=== PATIENT | female | born 1985 | race Caucasian/White ===

== ENCOUNTER 2023-08-01 07:29 | Outpatient (REF) | payer OTHER, SELFPAY ==
[2023-08-01 08:04] LABS: MANUAL DIFF FLAG NO
[2023-08-01 08:50] LABS: Basophils Percent Auto 0.4 % (0-2); Eosinophils Absolute Auto 0.1 X10*3/uL (0.0-0.4); Hematocrit 40.1 % (37.0-47.0); Hemoglobin 12.6 g/dl (12.0-16.0); Imm Gran Abs Auto 0.02 X10*3/uL (0.00-0.03); Imm Gran Pct Auto 0.3 % (0.0-0.4); Lymphocytes Absolute Auto 2.3 X10*3/uL (1.2-4.9); Lymphocytes Percent Auto 33.8 % (20-40); Mean Corpuscular HGB Conc 31.4 g/dl (31.0-35.0); Mean Corpuscular Volume 89.1 fL (80.0-98.0); Mean Platelet Volume 10.5 fL (9.4-12.3); Monocytes Absolute Auto 0.5 X10*3/uL (0.1-1.2); Monocytes Percent Auto 7.9 % (2-11); Neutrophils Absolute Auto 3.8 x10*3/uL (2.0-8.3); Neutrophils Percent Auto 55.6 % (45-73); Platelet Count 348 X10*3/uL (160-400); White Blood Count 6.9 X10*3/uL (4.8-10.8)
[2023-08-01 09:28] LABS: Alanine Aminotransferase 17 U/L (0-31); Albumin Level 4.2 g/dL (3.5-5.0); Alkaline Phosphatase 64 U/L (39-117); Anion Gap 10 (12-20); Aspartate Amino Transferase 18 U/L (5-31); Bilirubin Total 0.5 mg/dL (0.0-1.0); Blood Urea Nitrogen 12 mg/dL (9-16); Calcium 9.2 mg/dL (8.4-10.2); Carbon Dioxide 25 mmol/L (22-29); Chloride 110 mmol/L (96-108); Cholesterol 183 mg/dL (<200); Estimated Glomerular Filt Rate > 60; Glucose Random 89 mg/dL (60-115); HDL Cholesterol 52 mg/dL (>40); LDL Cholesterol Calculated 115 mg/dL (<100); Sodium 141 mmol/L (135-145); Total Protein 7.1 g/dL (6.5-8.0); Triglycerides 82 mg/dL (<150)
== END 2023-08-01 07:30 | disposition home or self-care (01) ==
LOC: HO.LAB 07:29
PROVIDERS: PCP Internal Medicine; Visit Provider Internal Medicine
DX: Z00.00 Encounter for general adult medical examination without abnormal findings (principal); M51.16 Intervertebral disc disorders with radiculopathy, lumbar region; R10.2 Pelvic and perineal pain; Z90.710 Acquired absence of both cervix and uterus; Z13.31 Encounter for screening for depression
CPT/HCPCS: 36415; 80053; 80061; 85025

== ENCOUNTER 2023-10-07 16:05 | Outpatient (REF) | payer OTHER, SELFPAY ==
--- NOTE | ~2023-10-07 | XR_ITS ---
EXAMINATION: XR HIP, LEFT CLINICAL INFORMATION: Osteoarthritis COMPARISON: None available. TECHNIQUE: Two views of the left hip. FINDINGS: No fracture. Alignment is anatomic. Hip joint space is maintained. Soft tissues are unremarkable. XR/XR hip LT w PEL1V IMPRESSION: Normal left hip.
== END 2023-10-07 16:06 | disposition home or self-care (01) ==
LOC: HO.XRAY 16:05
PROVIDERS: PCP Internal Medicine; Visit Provider Internal Medicine
DX: M16.12 Unilateral primary osteoarthritis, left hip (principal)
CPT/HCPCS: 73502

== ENCOUNTER 2023-10-17 15:33 | Outpatient (AMB) | payer OTHER, SELFPAY ==
--- NOTE | 2023-10-17 15:39 | MHC.OFFVIS ---
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 It's intermittent in nature lasting most of the day. it is not associated with c any onstipation, no dysuria, or frequency , no incontinence, no n/v, no feverishness PFSH Surgical History Hx of tubal ligation Hx of appendectomy Hx of hysterectomy Social History Household Members: Spouse and Children Housing: House Alcohol intake: current Alcohol intake frequency: holidays/special occasions only Patient Tobacco Use Status: Never used Tobacco Current occupational status: employed Current occupation: [employer] Sexual orientation: Straight/Heterosexual Gender identity: Female Female Reproductive History Menstrual control method: permanent sterilization Review of Systems Const All systems reviewed & are unremarkable except as noted in HPI and below Card Reports as per HPI and Reports no additional complaints Resp Reports as per HPI and Reports no additional complaints GI Reports as per HPI and Reports no additional complaints Reports as per HPI Physical Exam Vital Signs: BMI result Body Mass Index 32.9 Const General: cooperative, healthy appearing and comfortable General: Yes bladder normal to palpation External Female Exam: No lesion Speculum Exam - Vagina: normal appearance of the vagina, normal vaginal discharge and not erythematous Speculum Exam - Cervix: Cervix absent Bimanual exam- vagina & uterus: bladder normal to palpation and uterus absent Bimanual Exam- Adnexa, other: Other (No masses detected) Assessment & Plan Assessment & Plan (1) Pelvic pain: Comment: History of endometriosis status post hysterectomy Code(s): R10.2 - Pelvic and perineal pain Plan: Urine dip done in the office was negative. Pelvic ultrasound ordered. Discussed with the patient the differential diagnosis of pelvic pain including but not limited to adnexal mass, adhesions, endometriosis, GI the (Irritable bowel syndrome, diverticulitis, others), musculoskeletal, myofascial pain abdominal wall , psychological and others causes. Will check results and treat accordingly. All questions answered, the patient verbalized understanding. Instructed the patient to schedule follow-up appointment in 2 weeks Orders: Orders US pelvic and transvaginal Today R10.2 - Pelvic and perineal pain Coding Level of Care Code New Pt Level 3 (99167) Diagnoses Pelvic pain R10.2
[2023-10-17 15:41] VITALS: BP 110/74; BMI 32.9
== END 2023-10-17 15:59 | disposition home or self-care (01) ==
LOC: HO.HWS 15:33
PROVIDERS: PCP Internal Medicine; Visit Provider Obstetrics & Gynecology
DX: R10.2 Pelvic and perineal pain (principal)
CPT/HCPCS: 99203

== ENCOUNTER → 2023-10-17 15:33 | Outpatient (BNVA) | payer OTHER, SELFPAY | PROVIDERS: PCP Internal Medicine; Visit Provider Obstetrics & Gynecology | DX: R10.2 Pelvic and perineal pain (principal) | CPT/HCPCS: 99202 ==

== ENCOUNTER → 2023-12-05 13:17 | Outpatient (BNVA) | payer OTHER, SELFPAY | PROVIDERS: PCP Internal Medicine; Visit Provider Physician Assistant Medical | DX: S49.92XA Unspecified injury of left shoulder and upper arm, initial encounter (principal); X58.XXXA Exposure to other specified factors, initial encounter | CPT/HCPCS: 99203 ==

== ENCOUNTER 2023-12-19 08:57 | Outpatient (REF) | payer OTHER, SELFPAY ==
--- NOTE | ~2023-12-19 | MR_ITS ---
EXAMINATION: MR SHOULDER WITHOUT CONTRAST, LEFT CLINICAL INFORMATION: Pain COMPARISON: None available. TECHNIQUE: MRI of the shoulder without contrast was performed on a high-field scanner. FINDINGS: ROTATOR CUFF: Supraspinatus: Minimal heterogeneity of the distal supraspinatus tendon compatible tendinosis. No tear identified. Muscle normal. The remaining rotator cuff muscles and tendons are normal. BICEPS: Normal. CORACOACROMIAL ARCH: The undersurface of the acromion is curved with no subacromial spur. The acromioclavicular joint is normal. LABRUM/CAPSULE: Normal. GLENOHUMERAL JOINT/MARROW: Normal. MR/MR shoulder LT wo con IMPRESSION: Mild supraspinatus tendinosis.
== END 2023-12-19 08:58 | disposition home or self-care (01) ==
LOC: HO.MRI 08:57
PROVIDERS: PCP Internal Medicine; Visit Provider Internal Medicine
DX: M25.512 Pain in left shoulder (principal)
CPT/HCPCS: 73221

== ENCOUNTER 2023-12-25 10:54 | Outpatient (RCR) | payer OTHER, SELFPAY | END 2024-02-17 13:29 | disposition home or self-care (01) | LOC: HO.PT 10:54 | PROVIDERS: PCP Internal Medicine; Visit Provider Internal Medicine | DX: M70.60 Trochanteric bursitis, unspecified hip (principal) ==

== ENCOUNTER → 2023-12-30 14:23 | Outpatient (BNVA) | payer OTHER, SELFPAY | PROVIDERS: PCP Internal Medicine; Visit Provider Physician Assistant Medical | DX: M75.102 Unspecified rotator cuff tear or rupture of left shoulder, not specified as traumatic (principal) | CPT/HCPCS: 99213 ==

== ENCOUNTER → 2024-01-20 14:05 | Outpatient (BNVA) | payer OTHER, SELFPAY | PROVIDERS: PCP Internal Medicine; Visit Provider Physician Assistant Medical | DX: M75.102 Unspecified rotator cuff tear or rupture of left shoulder, not specified as traumatic (principal); S49.92XD Unspecified injury of left shoulder and upper arm, subsequent encounter; X58.XXXD Exposure to other specified factors, subsequent encounter | CPT/HCPCS: 99213 ==

== ENCOUNTER 2024-01-22 08:58 | Outpatient (AMB) | payer OTHER, SELFPAY ==
--- NOTE | 2024-01-22 09:09 | MHC.OFFVIS ---
Vital Signs 01/22/24 09:14 Height 5 ft 3 in Weight 185 lb 3.013 oz BMI 32.8 Intake Visit Reasons: Pelvic pain Allergies No Known Allergies Allergy (Verified 10/17/23 15:43) HPI Comments Details: The patient is presenting for follow-up regarding her pelvic pain that started 3 ago after hysterectomy for endometriosis. The patient was seen in 10/23 following workup was done urine dip in the office was negative and a pelvic ultrasound was ordered which was done at [facility], the patient brought the report, showing absent uterus normal right ovary and nonvisualization of the Last ovary with no evidence of pelvic masses PFSH Surgical History Hx of tubal ligation Hx of appendectomy Hx of hysterectomy Social History Household Members: Spouse and Children Housing: House Alcohol intake: current Alcohol intake frequency: holidays/special occasions only Patient Tobacco Use Status: Never used Tobacco Current occupational status: employed Current occupation: [employer] Sexual orientation: Straight/Heterosexual Gender identity: Female Review of Systems Const All systems reviewed & are unremarkable except as noted in HPI and below Card Reports as per HPI and Reports no additional complaints Resp Reports as per HPI and Reports no additional complaints GI Reports as per HPI and Reports no additional complaints Reports as per HPI Physical Exam Vital Signs: BMI result Body Mass Index 32.8 Const General: cooperative, healthy appearing and comfortable General: Yes bladder normal to palpation External Female Exam: No lesion Speculum Exam - Vagina: normal appearance of the vagina, normal vaginal discharge and not erythematous Speculum Exam - Cervix: Cervix absent Bimanual exam- vagina & uterus: bladder normal to palpation and uterus absent Bimanual Exam- Adnexa, other: Other (No masses detected) Results AMB Urinalysis Dipstick UR Leukocytes Negative Last Edit by Sylwia Rendon CMA on 01/22/24 09:18 UR Nitrite Negative Last Edit by Sylwia Rendon CMA on 01/22/24 09:18 UR Urobilinogen Normal Last Edit by Sylwia Rendon CMA on 01/22/24 09:18 UR Protein Negative Last Edit by Sylwia Rendon CMA on 01/22/24 09:18 UR Ph 6.0 Last Edit by Sylwia Rendon CMA on 01/22/24 09:18 UR Blood Last Edit by Sylwia Rendon CMA on 01/22/24 09:18 UR Specific [place] 1.020 Last Edit by Sylwia Rendon CMA on 01/22/24 09:18 UR Ketone Negative Last Edit by Sylwia Rendon CMA on 01/22/24 09:18 UR Bilirubin Negative Last Edit by Sylwia Rendon CMA on 01/22/24 09:18 UR Glucose Negative Last Edit by Sylwia Rendon CMA on 01/22/24 09:18 Results Reviewed Results Reviewed: Laboratory Last Values Urine pH (Clinic) 6.0 01/22/24 09:17 Specific [place] (Clinic) 1.020 01/22/24 09:17 Ur Protein (Clinic) Negative 01/22/24 09:17 Ur Ketones (Clinic) Negative 01/22/24 09:17 Urine Nitrite Negative 01/22/24 09:17 Urine Bilirubin (Clinic) Negative 01/22/24 09:17 Urobilinogen (Clinic) Normal 01/22/24 09:17 Leukocyte Esterase (Clinic) Negative 01/22/24 09:17 Urine Glucose (Clinic) Negative 01/22/24 09:17 Assessment & Plan Assessment & Plan (1) Pelvic pain: Comment: History of endometriosis status post hysterectomy Code(s): R10.2 - Pelvic and perineal pain Category: Medical Plan: Discussed with the patient the results the ultrasound and the pelvic pain secondary to endometriosis in addition to the options of treatment including but not limited to: control pills, progestins, GnRH analogues agonist/antagonist, danazol, aromatase inhibitors and neuropathic pain treatment in addition to surgical treatment options including surgical resection of endometriosis or nerve transection and bilateral oophorectomy with all its associated risks in a younger patient at her age group. Recommended referral to endometriosis clinic/specialist at [facility], the patient verbalized understanding and agreed with the plan. Orders: Orders AMB Urinalysis Dipstick Today R10.2 - Pelvic and perineal pain Coding Level of Care Code Est Pt Level 3 (70056) Diagnoses Pelvic pain R10.2
[2024-01-22 09:14] VITALS: BMI 32.8
== END 2024-01-22 11:47 | disposition home or self-care (01) ==
PROVIDERS: PCP Internal Medicine; Visit Provider Obstetrics & Gynecology
DX: R10.2 Pelvic and perineal pain (principal)
CPT/HCPCS: 99213

== ENCOUNTER → 2024-01-22 08:58 | Outpatient (BNVA) | payer OTHER, SELFPAY | PROVIDERS: PCP Internal Medicine; Visit Provider Obstetrics & Gynecology | DX: R10.2 Pelvic and perineal pain (principal); Z90.710 Acquired absence of both cervix and uterus | CPT/HCPCS: 81002 ==

== ENCOUNTER 2024-01-28 14:00 | Outpatient (RCR) | payer OTHER, SELFPAY ==
--- NOTE | 2024-01-14 16:49 | MHC.PT.EP ---
[facility] [place] Office [place] Office [place] Office [address] Roxie Swift [address] [phone] F: [phone] F: [phone] F: [phone] F: [phone] Physical Therapy Plan of Care Date of Evaluation: 01/14/24 Date of Surgery: Diagnosis: L shoulder tendonitis Mild supraspinatus tendonitis via MRI Assessment: Patient is a pleasant Khmer speaking 38 y.o. who is referred to PT by Dr. Eugenia Spears MD with Dx of LEFT shoulder tendonitis, supraspinatus verified on MRI. Patient impairments include poor posture, pain, tenderness, limited ROM, weakness in L shoulder. Patient current functional limitations are lift arm overhead, lift/carry items at work, put on undershirt. Patient will benefit from skilled PT to address aforementioned impairments and functional limitations to meet established goals. Frequency and Duration: The patient will be seen 2x/week for 4 weeks Short Term Goals: 2 weeks Patient demonstrates consistency and independence with HEP to self manage symptoms. Senior Care Goals: 4 weeks Patient demonstrates increased L shoulder flexion 175 degrees to reach overhead for work tasks. Patient demonstrates increased L shoulder flexion strength 5/5 to be able to lift 30# box floor to waist for work tasks. Treatment Plan: Modalities to reduce pain, spasms and effusion. Manual therapy to restore motion and function. Therapeutic exercise to improve strength and flexibility. Neuromuscular re-education for posture and balance. Therapeutic activities to return to functional activities of daily living. Electronically signed by: Alisa Chapman, PT, DPT Please sign and return to therapist. Thank you for your referral.
--- NOTE | 2024-03-26 09:48 | MHC.PT.DC ---
[facility] [place] Office [place] Office [place] Office [address] Roxie Swift [address] [phone] F: [phone] F: [phone] F: [phone] F: [phone] Physical Therapy Discharge Report Diagnosis: L shoulder tendonitis Mild supraspinatus tendonitis via MRI Date of Surgery: Date of Evaluation: 01/14/24 Date of Discharge: 03/26/24 Treatments to Date: 4 Cancellations to Date: 0 No Shows to Date: 4 Discharge Status: Independent with HEP Visit Non-compliance Discharge Summary: Rita is discharged from PT because she did not show to her last 4 PT visits. 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 Rita kept good form throughout and had no onset discomfort through. We also introduced some banded rows and extensions with some VC/TC needed for form w/good understanding from patient. She is discharged from PT at this time for non-compliance with attendance. Electronically signed by: Alisa Chapman, PT, DPT Please sign and return to therapist. Thank you for your referral.
== END 2024-03-26 09:48 | disposition home or self-care (01) ==
LOC: HO.PT 14:00
PROVIDERS: PCP Internal Medicine; Visit Provider Physician Assistant Medical
DX: M77.8 Other enthesopathies, not elsewhere classified (principal)
CPT/HCPCS: 97035; 97110; 97140; 97161

== ENCOUNTER 2024-08-21 14:47 | Outpatient (AMB) | payer OTHER, SELFPAY ==
[2024-08-21 15:08] VITALS: BP 116/68; BMI 33.9
--- NOTE | 2024-08-21 15:08 | MHC.OFFVIS ---
Vital Signs 08/21/24 15:08 Height 5 ft 3 in Weight 191 lb 8 oz BMI 33.9 BP 116/68 Blood Pressure Location Lt brachial Position Sitting Intake Visit Reasons: vaginal discomfort Allergies No Known Allergies Allergy (Verified 08/21/24 15:10) Is last menstrual period known: No HPI Comments Details: Patient is here today with concerns for feeling inflammation in her lower abdomen. History of endometriosis diagnosed 10yrs. ago, hysterectomy 3yrs. ago. She reports pain on the left ovary all the time and low back pain for a year. Referral for Endometriosis clinic in [place] since December, on the wait list. She denies any urinary symptoms, vaginal odors, has significant constipation, though better over the last few weeks. [facility] Surgical History Hx of tubal ligation Hx of appendectomy Hx of hysterectomy Social History Household Members: Spouse and Children Housing: House Alcohol intake: current Alcohol intake frequency: holidays/special occasions only Patient Tobacco Use Status: Never used Tobacco Current occupational status: employed Current occupation: [employer] Sexual orientation: Straight/Heterosexual Gender identity: Female Review of Systems Const All systems reviewed & are unremarkable except as noted in HPI and below Physical Exam Vital Signs: Last Vital Signs BP 116/68 08/21/24 15:08 BMI result Body Mass Index 33.9 Const General: cooperative, healthy appearing and no acute distress Orientation/consciousness: patient oriented x3 GI Inspection: Yes normal to inspection Palpation (GI): Soft to palpation and Other GI palpation findings present (Nontender) Rectal Exam - Female: visual inspection normal Other: Bloating noted General: Yes bladder normal to palpation External Female Exam: normal appearance of the urethra Speculum Exam - Vagina: normal appearance of the vagina, normal palpation and normal vaginal discharge Speculum Exam - Cervix: Cervix absent (vag cuff no lesions or nodules) Bimanual exam- vagina & uterus: normal bimanual exam, normal palpation, bladder normal to palpation and uterus absent Bimanual Exam- Adnexa, other: normal adnexae Neuro General: patient oriented x3 Assessment & Plan Assessment & Plan (1) Abdominal bloating: Code(s): R14.0 - Abdominal distension (gaseous) Plan Discussed: Recommended she call the endometrial clinic again and see if there is any openings or cancellations and what the wait list length is. Continue having a high-fiber diet, hydrate well, daily exercise, and using MiraLax p.r.n. as she has in the past. Consider seeing a GI specialist in the meantime through her primary care. All of her questions and concerns were addressed to the best of my ability and shared decision making. She is agreeable to the plan of care. Insert voice Coding Level of Care Code Est Pt Level 3 (79291) Diagnoses Abdominal bloating R14.0
== END 2024-08-21 15:49 | disposition home or self-care (01) ==
LOC: HO.HWS 14:47
PROVIDERS: PCP Internal Medicine; Visit Provider Advanced Practice Midwife
DX: R14.0 Abdominal distension (gaseous) (principal)
CPT/HCPCS: 99213

== ENCOUNTER 2025-04-20 14:23 | Outpatient (REF) | payer OTHER, MEDICAID, SELFPAY ==
--- OUTSIDE RECORDS SUMMARY | 2018-08-15 12:27 | XMS_ITS | Continuity of Care Document ---
Author Organization [facility] Address [address] [place] [id number] Phone Care Team Providers Care Pullman Car Clerk Name Role Phone Vin Cruz MD Unavailable Unavailable Allergies, Adverse Reactions, Alerts Substance Reaction Status Criticality No Known Allergies Active No Inform ation Medications Medication Instructions Dosage Effective Dates (start - stop) Status Comments Bactrim DS 800 mg-160 mg tablet take 1 tablet by oral route twice a day for 7 days - Active trazodone 100 mg tablet take 1 tablet by oral route every day after meals 100 MG - Active temazepam 15 mg capsule take 1 capsule b y oral route every day at bedtime as needed 15 MG - Active amitriptyline 75 mg tablet take 2 tablet by oral route every day at bedtime 150 MG - Active Procedures Procedure Date URINE DIP NON-AUTO WITHOUT MICRO 2017 TEST OFFICE/OUTPATIENT VISIT, EST OFFICE/OUTPATIENT VISIT, EST Penicillin g benzathrine inj 100,000 uni ts Injection, Therapeutic Or Diagnositic Au Nurse Visit Only Penicillin g benzathrine inj 100,000 uni ts Injection, Therapeutic Or Diagnositic Au Nurse Visit Only Bicillin LA Injection Injection, Therapeutic Or Diagnositic Au OFFICE/OUTPATIENT VISIT, EST URINE DIP NON-AUTO WITHOUT MICRO 2017 PREVENT VISIT EST 18-39 OFFICE VISIT ESTAB PT 25 MIN IMMUNIZATION ADMIN 1ST VACCINE 18 TDAP - State Supplied 7 And Older OFFICE VISIT ESTAB PT 25 MIN OFFICE/OUTPATIENT VISIT, EST Ketorolac Tromethamine Inj OFFICE/OUTPATIENT VISIT, EST Ketorolac Tromethamine Inj Injection, Therapeutic Or Diagnositic Se OFFICE/OUTPATIENT VISIT, EST Ketorolac Tromethamine Inj OFFICE/OUTPATIENT VISIT, EST INFLUENZA ASSAY W/OPTIC INFLUENZA ASSAY W/OPTIC With Modifier Ma OFFICE/OUTPATIENT VISIT, EST OFFICE VISIT ESTAB PT 10 MIN PREVENT VISIT EST 18-39 PREVENT VISIT NEW AGE 18-39 Advance Directives Directive Yes / No Effective Date File Name No Information Encounters Encounter Description Practice Location Reason(s) For Visit Diagnoses Date Provider Providers Copied on Encounter [facility] [address] [place] [address], [id number] , tel:[phone] [facility] No Information 8 Anthony Banuelos. [address] [place], [address], [place]. tel:[phone] OFFICE/OUTPA TIENT VISIT, [facility] [address] [place] [address], [id number] , tel:[phone] [facility] abdominal pain (chief complaint) Lower abdominal painIrregular menses 8 Anthony Banuelos. [address] [place], [address], [place]. tel:[phone] Referring Provider: Vin Cruz, [address] [place], [address]. tel:[phone] OFFICE/OUTPA TIENT VISIT, [facility] [address] [place] [address], [id number] , tel:[phone] 42 [facility] pelvic pain (chief complaint) LLQ pain 8 Tara Tinoco. [address] [place], [place], [id number], . tel: [facility] [address] [place] [address], [id number] , tel: [phone] [facility] Bicillin # 3 (chief complaint) Latent syphilis 8 No Information Referring Provider: Vin Cruz, [address] [facility] [place], [address]. tel:[phone] [facility] [address] [place] [address], [id number] , tel: [facility] Penicillin injection (chief complaint) Latent syphilisBody mass index (BMI) 32.0-32.9, adult 8 No Information Referring Provider: Vin Cruz, [address] [facility] [place], [address]. tel:[phone] OFFICE/OUTPA TIENT VISIT, EST [facility], [address] [place] [address], [id number] , tel: [facility] f/u lab results (chief complaint)othe r (chief complaint) Body mass index (BMI) 32.0-32.9, adultLatent syphilisSwelli ng of both hands 8 Anthony Banuelos. [address] [facility] [place], [address], [place]. tel: Referring Provider: Vin Cruz, [address] [facility] [place], [address]. tel:[phone] PREVENT VISIT EST 18-39 [facility] [address] [place] [address], [id number] , [place] tel: [phone] [facility] Preventive exam (chief complaint)Inso mnia (chief complaint) Encounter for preventive health examinationLow er abdominal painAnxietyOth er insomniaSwelli ng of both hands 8 Anthony Banuelos. [address] [facility], [address], [place]. tel: Referring Provider: Vin Cruz, [address] [facility] [place], [address]. tel:[phone] OFFICE VISIT ESTAB PT 25 MIN [facility] [address] [place] [address], [id number] , [place] tel: [phone] [facility] Swelling (chief complaint) Body mass index (BMI) 32.0-32.9, adultSwelling of both handsPain in both feet 8 Anthony Banuelos. 39 [facility] [place], [address], [place]. tel: Referring Provider: Vin Cruz, 39 [facility] [place], [address]. tel:[phone] OFFICE VISIT ESTAB PT 25 MIN [facility] [address] [place] [address], [id number] , [place] tel: [phone] [facility] rash (chief complaint)hand and foot pains (chief complaint) Body mass index (BMI) 31.0-31.9, adultFriction injury to skinLeft hand and foot painRight hand and foot pain 8 Tristanenriquedemarcus Vazquez. [address] [place], [place], [id number], [place]. tel: Referring Provider: Vin Cruz, 39 [facility], [place], [address]. tel:[phone] [facility] [address] [place] [address], [id number] , [place] tel: [phone] [facility] Concussion without loss of consciousness, initial encounterOther headache syndromeWork related injury 7 Anthony Banuelos. 39 [facility] [place], [address], [place]. tel: OFFICE/OUTPA TIENT VISIT, EST [facility] [address] [place] [address], [id number] , [place] tel: [phone] [facility] headache (chief complaint) Other headache syndromeWork related injury 7 Anthony Banuelos. 39 [facility] [place], [address], [place]. tel: Referring Provider: Vin Cruz, [address] [place], [address]. tel:[phone] OFFICE/OUTPA TIENT VISIT, [employer] [address] [place] [address], [id number] , [place] tel: [phone] [facility] headache (chief complaint) Concussion without loss of consciousness, initial encounterOther headache syndromeWork related injury Anthony Banuelos. [address] [facility] [place], [address], [place]. tel: Referring Provider: Vin Cruz, [address] [facility] [address] [place], [address]. tel:[phone] OFFICE/OUTPA TIENT VISIT, [employer] [address] [place] [address], [id number] , [place] tel: [phone] [facility] headache (chief complaint) Acute nonintractable headache, unspecified headache type Anthony Banuelos. [address] [facility] [address] [place], [address], [place]. tel: Referring Provider: Vin Cruz, [address] [facility] [address] [place], [address]. tel:[phone] OFFICE/OUTPA TIENT VISIT, [employer] [address] [place] [address], [id number] , [place] tel: [phone] [facility] back pain (chief complaint) Acute bilateral low back pain with right-sided sciatica 7 Anthony Banuelos. [address] [place], [address], [place]. tel: Referring Provider: Vin Cruz, [address] [facility] [address] [place], [address]. tel:[phone] OFFICE/OUTPA TIENT VISIT, [employer] [address] [place] [address], [id number] , [place] tel: [phone] [facility] [employer] Cold symptoms (chief complaint) Upper respiratory tract infection, unspecified typeReactive airway disease that is not asthma 7 Anthony Banuelos. 39 [facility] [place], [address], [place]. tel: Referring Provider: Vin Cruz, [address] [place], [address]. tel:[phone] OFFICE VISIT ESTAB PT 10 MIN [facility] [address] [place] [address], [id number] , [place] tel: [phone] [facility] Follow Up of Endometriosis (chief complaint) Endometriosis 7 Vaibhav Melvin. [address] [place], [place], [id number], [place]. tel: Referring Provider: Olegario Pierce, [address] [place], [address] . tel:[phone] PREVENT VISIT EST 18-39 [facility] [address] [place] [address], [id number] , [place] tel: [phone] [facility] annual exam (chief complaint)endo metriosis (chief complaint) Routine gynecological examinationEnd ometriosis 7 Yaneth Marie. [address] [place], [address], [place]. tel: Referring Provider: Vin Cruz, 39 [facility], [place], [address]. tel:[phone] PREVENT VISIT NEW AGE 18-39 [facility] [address] [place] [address], [id number] , [place] tel: [phone] [facility] Preventive exam (chief complaint)abdo casey pain (chief complaint) Encounter for preventive health examinationChr onic gastritis without bleeding, unspecified gastritis typeEndometrio sisAcute nonintractable headache, unspecified headache type 6 Anthony Banuelos. 39 [facility] [place], [address], [place]. tel: Referring Provider: Vin Cruz, [address] [facility] [place], [address]. tel:[phone] Family History Family Member Type Diagnosis Age At Onset Brother Problem (finding) Alive and well Mother Problem (finding) Alive and well Father Problem (finding) Alive and well Immunizations Vaccine Date Status Comments Tdap administered Source: New Imm unization Record Payers Payer name Insurance type Covered republican ID Authoriza tion(s) No Information Social History Type Description Quantity Date Captured Comments Alcohol Use Details Unknown Caffeine Use Details Unknown Tobacco Use Status No Information Smoking Status No Information Sex Female Sexual Orientation Straight or heterosexual Gender Identity Female Chief Complaint And Reason For Visit No Information Reason For Referral Reason For Referral No Information Plan Of Treatment Date Type Action Status Goal Pap/HPV testing. Due on due Goal HIV screen. Due on 18 due Goal Tdap due Goal PHQ9. Due on due Goal Suicide risk ass essment. Due on due Goal Depression scree stevie. Due on due Goal PHQ9. Due on due Goal Suicide risk ass essment. Due on due Goal HIV screen. Due on 18 due Goal Tdap due Goal Pap/HPV testing. Due on due Goal Depression scree stevie. Due on due Goal Depression scree stevie. Due on due Goal Suicide risk ass essment. Due on due Goal PHQ9. Due on due Goal HIV screen. Due on 18 due Goal Pap/HPV testing. Due on due Goal Tdap due Goal Tdap due Goal Depression scree stevie. Due on due Goal HIV screen. Due on 18 due Goal Pap/HPV testing. Due on due Goal Suicide risk ass essment. Due on due Goal PHQ9. Due on due Goal HIV screen. Due on 18 due Goal Pap/HPV testing. Due on due Goal Tdap due Goal Depression scree stevie. Due on due Goal Suicide risk ass essment. Due on due Goal PHQ9. Due on due Goal Suicide risk ass essment. Due on due Goal PHQ9. Due on due Goal Tdap due Goal Pap/HPV testing. Due on due Goal HIV screen. Due on 18 due Goal Depression scree stevie. Due on due Goal PHQ9. Due on due Goal Suicide risk ass essment. Due on due Goal Depression scree stevie. Due on due Goal HIV screen. Due on 18 due Goal Pap/HPV testing. Due on due Goal Tdap due Goal Depression scree stevie. Due on due Goal Tdap due Goal HIV screen. Due on 18 due Goal Pap/HPV testing. Due on due Goal HIV screen. Due on 18 due Goal Influenza vaccin e. Due on due Goal Pap/HPV testing. Due on due Goal Tdap due Goal Depression scree stevie. Due on due Goal Pap/HPV testing. Due on due Goal HIV screen. Due on due Goal Tdap. Due on due Goal Influenza vaccin e. Due on due Goal Td vaccine. Due on due Goal Influenza vaccin e. Due on due Goal Pap/HPV testing. Due on due Goal Tdap. Due on due Goal HIV screen. Due on due Goal Td vaccine. Due on due Goal Td vaccine. Due on due Goal Tdap. Due on due Goal Pap/HPV testing. Due on due Goal Influenza vaccin e. Due on due Goal HIV screen. Due on due Goal Td vaccine. Due on due Goal Tdap. Due on due Goal HIV screen. Due on due Goal Pap/HPV testing. Due on due Goal Influenza vaccin e. Due on due Goal HIV screen. Due on due Goal Tdap. Due on due Goal Pap/HPV testing. Due on due Goal Influenza vaccin e. Due on due Goal Td vaccine. Due on due Goal HIV screen. Due on due Goal Influenza vaccin e. Due on due Goal Td vaccine. Due on 17 due Goal Tdap. Due on due Goal Td vaccine. Due on 17 due Goal HIV screen. Due on 17 due Goal Influenza vaccin e. Due on due Goal Tdap. Due on due Goal Td vaccine. Due on 17 due Goal HIV screen. Due on due Goal Influenza vaccin e. Due on due Goal Tdap. Due on due Referral Referred To: [facility] [address] [place] [address], [phone] Ordered: Referrals: Neurology. [facility]. Evaluate and treat ordered Referral Referred To: Physical Therapy Ordered: Referrals: Physical Therapy. Evaluate and treat ordered Patient Education Concussion: Care Instru ctions completed Patient Education Acute Low Back Pain: Ex ercises completed Future Order: Radiology Order US PELVIC COMPLETE [id number] (US PEL COM), Ordered on: Ordered Future Order: Radiology Order Glory mbar Spine X-ray (including sacrum) (Limited, 2 or 3 views) ([id number]), Ordered on: Ordered Future Order: Radiology Order Th oracic Spine X-ray (3 views) ([id number]), Ordered on: Ordered History Of Present Illness Encounter Date Complaint History Of Prese nt Illness abdominal pain Onset: 1 Week. T he severity of the problem is moderate. Pain scale: 6/10. The problem has not changed. The symptoms are constant. The location is lower. The reports radiation to the pelvic pain. The quality of the pain is achy. The denies aggravating factors. The denies relieving factors. Associated symptoms include bloating. Pertinent negatives include change in appetite, fever, nausea and vomiting. Additional information: irregular periods. c/o Insomnia. pelvic pain Her symptoms hav e been mild. Presently and the patient is experiencing pain described as colicky. The patient does not have a history of dyspareunia. Her symptoms are not aggravated by anything. Her symptoms are associated with constipation. Additional information: LLQ pain for the past 2 months, constipation for the past 2 days Had BTL. Bicillin # 3 Pt presents toda y for Bicillin injection # 3 administration. VS WNLPt denies allergies to penicillin and reactions to other Bicillin injections. Shot administered per protocol without complication.Pt waited 10 min after injection with no reactions observed. Penicillin injection Patient her e for 2nd Bicillin L-A 2.4million units for treatment of latent syphilisStates no side effects from previous penicillin injectionBicillin L-A 2.400,000 units given in right buttockPatient waited for 20 minutes after injection with no side effects f/u lab results Aggravating fact ors include --. Relieving factors include --. 04/28/18 - Treponema - positiveRPR-reactive, DILS- 1:4 other Aggravating fact ors include --. Relieving factors include --. still with swelling of both hands intermittentlyNot much swollen now Preventive exam Currently pregna nt: no. : 3. Parity: Term: 3. Livin. The patient states she uses tubal ligation for control. Last LMP was 04/13/2018. Her menses is regular. Details: [facility] [employer]. Negative for: breast discharge, breast lump(s) and breast pain. Positive for: breast self exam. Pertinent negatives include abnormal vaginal bleeding, vaginal discharge and vaginal itching.The patient states her exercise level is moderate and frequency is 2-3 times/week. The patient does not use tobacco. Tobacco cessation has been discussed. She has not been exposed to passive smoke. She does drink alcohol. Insomnia The patient pres ents with sleep problems. Relevant history: time to fall asleep is 4 hours per night and a BMI of 32.76. The patient has the following risk factors for insomnia: use of alcohol. The patient does not have: smoking. The patient is experiencing difficulty concentrating and difficulty maintaining sleep.Additional information: Seeing Neurologist - Cesar Lees for post concussive syndrome. Next appt is in [place], [place] on 05/04/18. Swelling The swelling occ urred 1 month ago and is constant. The severity is moderate and remained unchanged. The patient denies any history of trauma. The patient has pain in the bilateral hands and feet. The swelling is aggravated by movement and walking. Interventions the patient has tried have not provided any relief. The swelling is associated with decreased mobility. The patient denies any bruising, chest pain, dyspnea, fever or numbness. Additional information: Taking Amitriptyline 75mg,.. rash The patient pres ents for rash. This episode began on 02/01/2018. Affected area(s) include left thigh. The patient describes the affected area(s) as burning, itchy and red. Associated symptoms include erythema (skin), painful rash and pruritus. hand and foot pains Pt reports p ains as being chronic, inflammation headache Onset: 1 Month. The severity of the problem is moderate. Pain scale: 10/10. The problem has not changed. The symptoms are constant. Locations affected include RIght side. Denies aggravating factors. Denies relieving factors. Associated symptoms include dizziness. Pertinent negatives include fever, nausea or vomiting. Additional information: Here re 07/19/17 work injury when she hit her head on a shelf as she was lifting head. Seen here on 07/22/17. Seen at ED on 08/09/17 - normal CT Head and CT Neck. Pt states that she was seen at [facility] for several visits, given Ibuprofen and Cyclobenzaprine - not helping - and was told to f/u with PCP in order to get different medication. Has 08/29/17 neurology appt. headache Onset: 3 Days. T he severity of the problem is moderate. Pain scale: 8/10. The problem has not changed. The symptoms are constant. Locations affected include neck, right ocular and right parietal. Context additional comments: work comp. Aggravating factors include bright lights and touch. Denies relieving factors. Associated symptoms include dizziness, nausea, photophobia, RT side and ear ache. Pertinent negatives include blurred vision, fever, vision loss left, vision loss right or vomiting. Additional information: pt states she banged her head as she was getting up. On Saturday. Dizziness. Had nausea on and off. headache Onset: 4 Days. T he severity of the problem is severe. Pain scale: 7/10. The problem has not changed. The symptoms are constant. Locations affected include neck, bilateral frontal and bilateral temporal. Symptoms are associated with stress. Denies aggravating factors. Denies relieving factors. Associated symptoms include blurred vision, nausea, vomiting and light headed. Pertinent negatives include fever. Additional information: vomitted 5x yesterday. Had some diarrhea 3 days ago, none now. back pain Onset: 8 days ag o. Duration: 3 Months. The problem is worsening. It occurs persistently. Location of pain is lower back. Pain is radiated to the left thigh.The patient describes the pain as an ache and sharp. Symptoms are aggravated by changing positions.The patient denies relieving factors. Additional information: has been doing physical therapy states it has not been helping x 2 months. Cold symptoms Onset: 1 week ag o. The patient describes the cough as productive. It occurs persistently. The problem has become gradually worse. There are no aggravating factors. There are no relieving factors. Associated symptoms include chills, cough, dyspnea, fever, nasal congestion, headache and bodyaches. Pertinent negatives include sore throat. Follow Up of Endometriosis repor ts 10/10 pain 20 out of 30 days a month, not improving with nsaids. deisres hormonal tx. had hormione injection in [facility] monthly. will bring records. laparoscopy 2 years ago as per pt +for endometriosis endometriosis Dx in [facility]. Started after her 3 deliveries. Menses regular and normal flow, orange blood. Pain is usually 5/10 to 10/10, lasting several weeks after menses. When very painful this travels down both legs. Was told in [facility] she can have this cleaned . Took some meds for this there but none here. Using NSAIDS with some relief. Explained options here. Not sure if she is a candidate for Lupron. Increased her dose on ibuprofen and will discuss next with . annual exam Currently pregna nt: no. : 3. Parity: Term: 3. The patient states she uses tubal ligation for control. Last LMP was 01/02/2017. Her menses is regular. Positive for dysmenorrhea. Negative for menorrhagia. Negative for: breast discharge, breast lump(s) and breast pain. Positive for: breast self exam. Pertinent negatives include abnormal vaginal bleeding, anxiety, depression, dyspareunia, history of infertility, vaginal discharge and vaginal itching. She does not take calcium. She does not take Vitamin D. She does not take multivitamins. She does not take Folic acid.The patient states her exercise level is moderate and frequency is 2-3 times/week. The patient does not use tobacco. She has not been exposed to passive smoke. She does drink alcohol. abdominal pain Pain scale: 0/10 . Pertinent negatives include back pain, dyspnea, fever and rash.Additional information:------ERROR-----. Preventive exam Currently pregna nt: no. : 3. Parity: Term: 3. The patient states she uses tubal ligation and 7 years ago for control. Last LMP was 06/11/2016. Positive for: breast self exam. The patient does not use tobacco. She does drink alcohol. Additional information: 31 year old female here for first continuity visit at [place].pt states she has been having a lot of headaches for the past 8 days and she also has nausea with the headaches. Also with nasal congestion.Hx Endometriosis.Chronic Gastritis - used Ranitidine in the past with good results. Functional Status Date Functional Assessmen t No Information Instructions Date Instruction Additional Infor jah Blood work ordered Related to Ir regular menses Urine sent to lab fo r culturesDrink lots of fluidsFollow medication instructionsIf not improving, [facility] 2 [facility]. Related to Lower abdominal pain Return on 05/15/2018 for 3rd penicillin injection Related to Latent syphilis Giving encouragement to exercise Related to Body mass index (BMI) 32.0-32.9, adult Dietary needs education Related to Body mass index (BMI) 32.0-32.9, adult Unclear causeWill ev aluate after Latent Syphilis treatments completed. Related to Swelling of both hands Need Penicillin G 2. 4 Mill Units injections once a week for 3 weeksFirst injection given todayReturn in one week for injection #2Return again one week later for injection #3Have your partner get tested for Syphilis. If he is positive, he will need the same treatmentNo sexual activity until all treatments are completed. Related to Latent syphilis Dietary needs education Related to Body mass index (BMI) 32.0-32.9, adult Giving encouragement to exercise Related to Body mass index (BMI) 32.0-32.9, adult Fasting labs ordered Return here in one month. Related to Swelling of both hands See above. Related to Other insomnia Continue folow-up wi Dr. Link need office notes from Dr. Lees. Related to Anxiety Urine sent to lab fo r culturesSchedule [employer] appointment for PAP/Pelvic. Related to Lower abdominal pain Fasting labs ordered Schedule [facility] Eye Doctor visitContinue healthy food choicesExercise regularlyReturn here in one month. Related to Encounter for preventive health examination See above. Related to Pain in both feet Blood and urine test in lab todayWe will call if results are concerningFollow-up in primary care in one month. Related to Swelling of both hands Giving encouragement to exercise Related to Body mass index (BMI) 32.0-32.9, adult Dietary needs education Related to Body mass index (BMI) 32.0-32.9, adult Take Naproxen, 500mg , twice a day with foodF/U if not improving in 3-4 weeks, sooner with new or worsening concerns Related to Left hand and foot pain Use Body [place] to so othe and prevent chaffingF/U with new or worsening concerns Related to Friction injury to skin Giving encouragement to exercise Related to Body mass index (BMI) 31.0-31.9, adult Dietary needs education Related to Body mass index (BMI) 31.0-31.9, adult See above. Related to Work related injury Drink lots of fluids RestStop other medicationsFollow new medication instructionsIf not improving, return hereFollow-up with Neurologist on 08/29/17. Related to Other headache syndrome See above. Related to Other headache syndrome See above. Related to Work related injury See handoutDrink lot s of fluidsRestFollow medication instructionsNote for OOW this weekIf not improving, [facility], [facility] dept Related to Concussion without loss of consciousness, initial encounter Drink lots of fluids RestFollow medication instructionsTry Sumatriptan firstIf not effective, can try IndomethacinDo not take Indomethacin with IbuprofenNote for OOW today and tomorrowIf not improving, see your doctor or return here Related to Acute nonintractable headache, unspecified headache type Upper and Lower Back Xrays orderedCall here for resultsHeat to middle and low back muscles 20 minutes 3-4 times a dayFollow medication instructionsLow Back exercises as tolerated. See handout.Note for OOW todayIf not improving, return here or go to emergency department. Related to Acute bilateral low back pain with right-sided sciatica Drink lots of fluids RestFollow medication instructionsNote for OOW todayIf not improving, see your doctor or return here Related to Upper respiratory tract infection, unspecified type See above. Related to React conor airway disease that is not asthma Goal: Take meds regu larly as prescribed. Discuss next with Dr. Esposito. Related to Endometriosis Results will be mail ed in 2-4 weeks.The next pap smear will be in 3 years if this one is normal. The office will call you if you need another appointment with me.Call with any questions or problems if you need to. Related to Routine gynecological examination Schedule appointment with PAINT CREW SUPERVISOR at [facility] for evaluation and PAP. Related to Endometriosis Drink lots of fluids Follow medication instructionsIf not improving, return here Related to Acute nonintractable headache, unspecified headache type Fasting labs Can ret urn here in 1-2 weeks for Influenza Vaccine when feeling betterFollow-up in one month. Related to Encounter for preventive health examination Drink lots of fluids [place] foods until betterFollow medication instructionsIf not improving, return here Related to Chronic gastritis without bleeding, unspecified gastritis type Assessments Type Assessment Date No Information Patient Care Teams Name Effective Dates (start - stop) Status Members No Information
--- OUTSIDE RECORDS SUMMARY | 2024-06-08 11:20 | XMS_ITS ---
Author Organization [facility], [facility] Address [address] [place] [id number] Care Team Providers Care Legal Archivist Name Role Phone Johnnie Ball Primary Care Provider REASON FOR VISIT Initial Visit est care Encounters Encounter Location Date Provider Diagnosis [address] [address] 06/08/2024 Johnnie Ball Assessments Encounter Date Diagnosis (ICD Code) Assessment Notes Treatment Notes Treatment Clinical Notes Section Notes 06/08/2024 Other Body Mass Index : Care Instructions material was printed Plan Of Treatment Treatment Notes Assessment Notes Other Body Mass Index: Car e Instructions material was printed Progress Notes * Rita FRANCISCODOB:[birth year] (40 yo F)Acc No.[id number]:06/08/2024 Progress Notes Patient: Rita DUKES Provider: Jesus Ball DO :1985 A ge:39 Y S ex:Female Date:06/08/2024 External Visit ID:[id number] Address:[address] [place], [place] [id number] Subjective: * Chief Complaints: * 1 . Initial Visit est care. * Medical History: Objective: * Vitals: * Physical Examination: Assessment: Plan: * Treatment: Care Plan: * Problems: * Billing Information: * Visit Code: * Procedure Codes: Care Plan Details* * Electronic signature of Kortney Ball DO on 04/20/2025 at 03:38 PM EDT Sign off status: Pending * Provider: Jesus Ball DO Date: 06/08/2024 Generated for Eben keller/Tom/Kashifransmitting on: 04/20/2025 03:38 PM EDT
--- NOTE | ~2025-04-20 | US_ITS ---
EXAMINATIONS: 1. MM DIAGNOSTIC DIGITAL BREAST TOMOSYNTHESIS, LEFT 2. US BREAST LIMITED BILATERAL CLINICAL INFORMATION: Bilateral lumps. Bilateral focal pain at the same areas as of the lumps. COMPARISON: None. This is a baseline study. TECHNIQUE: Digital breast tomosynthesis is performed in both the craniocaudal and mediolateral oblique views along with computer-aided detection (CAD). Synthesized 2D images are generated from the tomosynthesis. Two skin markers were placed in each breast indicating the location of the palpable concerns. FINDINGS: BREAST COMPOSITION: The breasts are heterogeneously dense, which may obscure small masses (ACR BI-RADS breast composition Category c). RIGHT BREAST: - Adjacent to the skin BB marker located in the upper outer quadrant, there is an approximately 2.9 cm oval mass at 7 cm from the nipple. Targeted ultrasound performed at the location of the palpable concern as indicated by the patient shows a correlating simple cyst measuring 2.8 x 1.8 x 2.5 cm at 9 o'clock position at 9 cm from the nipple. -No suspicious mammographic findings adjacent to the skin marker located in the lower breast at approximately 6 o'clock position. Targeted ultrasound performed at the location of the palpable concern as indicated by the patient did not reveal suspicious mammographic findings. -No significant masses, suspicious calcifications or other abnormalities are seen. LEFT BREAST: - No significant masses, suspicious calcifications or other abnormalities are seen. In particular, no suspicious mammographic findings in the immediate vicinity of the skin BB markers. -Targeted ultrasound performed at the location of the palpable concern as indicated by the patient shows the following: --2.0 x 1.0 x 1.6 cm simple cyst at 4 o'clock position 5 cm from the nipple, without internal vascularity is demonstrated with color Doppler evaluation. --Two adjacent complicated cysts containing internal echoes at 2 o'clock position at 4 cm from the nipple measuring 1.5 x 1.2 x 1.3 cm and 1.5 x 0.8 x 1.4 cm. No internal vascularity demonstrated with color Doppler evaluation. US/US breast BI limited mamm only IMPRESSION: RIGHT BREAST: Simple cyst correlates with one of the palpable concern. Benign, no evidence of malignancy. Clinical follow-up is recommended, otherwise, return to yearly screening mammogram at age of [age] years old. LEFT BREAST: Simple and complicated cysts correlates with the palpable concerns. Benign, no evidence of malignancy. Clinical follow-up is recommended, otherwise, return to yearly screening mammogram at age of [age] years old. ASSESSMENT: BI-RADS 2 - Benign Findings RECOMMENDATION: 1. Patient should be managed based on the clinical impression. 2. Otherwise, routine annual screening mammography. Results were provided to the patient at time of visit by the technologist. This patient's information was entered into a reminder system with a target due date for their next mammogram. Electronically signed by: Roderick Solano MD 04/20/2025 07:31 PM EDT
--- OUTSIDE RECORDS SUMMARY | 2025-04-20 15:39 | XMS_ITS | Clinical Summary ---
Author Organization [facility] Address [email or web address] [address] Phone Care Team Providers Care Sponge Maker Name Role Phone Harini Merrill MD Primary Care Provider Allergies No known active allergies Medications ergocalciferol (DRISDOL) 50,000 unit capsuleIndicati ons:Vitamin D deficiency Take 1 capsule (50,000 Units total) by mouth once a week. 8 capsule 1 Active iron, ferronyl,-vitam in C 65 mg iron- 125 mg TbECIndications :Iron deficiency Take 1 tablet by mouth daily. 90 tablet 1 1 Active methylPREDNISol one (MEDROL DOSEPACK) 4 mg tabletIndicatio ns:Lumbar pain follow package directions 21 tablet 1 Active elagolix 150 mg Tab Take 1 tablet (150 mg total) by mouth daily. 30 tablet 4 5 Active Active Problems Problem Noted Date Diagnosed Date Pelvic pain 10/26/2024 Endometriosis of pelvic peritoneum 10/26/2024 Menorrhagia with regular cycle 11/10/2020 Encounter for annual routine gynecological exami nation 09/14/2020 Vitamin D deficiency 09/14/2020 Nutritional deficiency disorder 09/14/2020 Screening for malignant neoplasm of cervix 09/14 Need for ijgdwhnzld-kfrrjwg-qrvjnkikj (Tdap) vac cine 09/14/2020 PMS (premenstrual syndrome) 09/14/2020 Irregular bleeding 09/14/2020 Dyspareunia in female 09/14/2020 Dysuria 09/14/2020 Left wrist pain 09/14/2020 Lumbar pain 09/14/2020 Fatty liver Encounters Date Type Department Care Team Description 03/19/2025 Documentation [facility] [address] [place] [address] Alex Granger MD 03/16/2025 9:30 AM EDT Office Visit [facility] [address] [address] Alex Granger MD Pelvic pain (Primary Dx) 03/12/2025 Documentation [facility] [address] [place] [address] Alex Granger MD from Last 3 Months Immunizations Immunization Administration Dates Next Due COVID-19 (Pre-07/22) Pfizer Vaccine, mRNA, PF ,02/05/2021 Influenza Recombinant Macie valent Preservative Free IM 09/14/2020 Tdap 09/14/2020 Family History Medical History Relation Comments No Known Problems Brother No Known Problems Daughter 1 No Known Problems Daughter 2 No Known Problems Father No Known Problems Maternal Grandfather Hypertension Maternal Grandmother No Known Problems Mother No Known Problems Paternal Grandfather No Known Problems Paternal Grandmother No Known Problems Sister 1 No Known Problems Sister 2 No Known Problems Sister 3 No Known Problems Son Relation Status Comments Brother Alive Daughter 1 Alive Daughter 2 Alive Father Alive Maternal Grandfather Maternal Grandmother Mother Alive Paternal Grandfather Paternal Grandmother Sister 1 Alive Sister 2 Alive Sister 3 Alive Son Alive Social History Tobacco Use Types Packs/Day Years Used Date Smoking Tobacco: Never Smokeless Tobacco: Never Tobacco Cessation:Counseling Given: Not Answered Alcohol Use Standard Drinks/Week Comments Not Currently 0 (1 standard drink = 0.6 oz pur e alcohol) Education Answer Date Recorded Are you interested in more education? Not on jace e 01/25/2023 Are you concerned about learning? Not on file 01/25/2023 No 01/25/2023 No 01/25/2023 Digital Access Answer Date Recorded No 02/23/2023 No 02/23/2023 Reliable internet access at home? Not on file 02/23/2023 Device with a working camera? Not on file Comments No Sex and Gender Information Value Date Recorded Sex Assigned at Female 03/12/2025 5:33 PM EDT Legal Sex Female 1:54 PM EDT Gender Identity Female 03/12/2025 5:33 PM EDT Sexual Orientation Straight 03/12/2025 5: 33 PM EDT Last Filed Vital Signs Vital Sign Reading Time Taken Comments Blood Pressure 120/56 03/16/2025 9:31 AM EDT Pulse 77 03/16/2025 9:31 AM EDT Temperature 35.9 C (96.6 F) 03/16/2025 9:31 AM EDT Respiratory Rate 16 12/20/2020 4:01 PM EDT Oxygen Saturation 100% 03/16/2025 9:31 AM EDT Inhaled Oxygen Concentration - - Weight 88.1 kg (194 lb 4.8 oz) 03/16/2025 9:31 A M EDT Height 160 cm (5' 2.99 ) 03/16/2025 9:31 AM EDT Body Mass Index 34.43 03/16/2025 9:31 AM EDT Plan of Treatment Upcoming Encounters Date Type Department Care Team (Late st Contact Info) Description 06/28/2025 11:30 AM EDT Telemedicine [facility] [address] [place], [place] [address] [place] [address] Alex Granger MD [address] [place] [address] for Infertility [place] [address] [email or web address] Health Maintenance Due Date Last Done Comments DEPRESSION SCREENING 11/10/2021 11/10/2020 SCREENING FOR DIABETES 09/14/2023 09/14/2020 COVID-19 VACCINE (3 2023-2 5 season) 2024 02/26/2021, 02/05/2021 Adult Td,Tdap Booster 09/14/2030 09/14/2020 HEPATITIS C SCREENING 11/10/2030 Postpo melinda from 2005 (Patient Declines / Guardian Declines) HIV ONE-TIME SCREENING (18-6 5 YEARS) Completed 09/14/2020 SMOKING STATUS SCREENING (Once After 26 Yrs) Completed 03/16/2025 HEPATITIS A VACCINES Aged Out No long er eligible based on patient's age to complete this topic HIB VACCINES Aged Out No longer eligi ble based on patient's age to complete this topic MENINGOCOCCAL VACCINES (ACWY) Aged Out No longer eligible based on patient's age to complete this topic MENINGOCOCCAL VACCINES (B) Aged Out N o longer eligible based on patient's age to complete this topic PNEUMOCOCCAL VACCINES (0-49 years) Aged Out No longer eligible b ased on patient's age to complete this topic Medical Devices Not on file Insurance [employer] Member Subscriber Plan / Payer ( fective 2024-Present) Name:Rita Gan Relation to Subscriber:Self Name:Rita Gan Payer ID:[id number] (NAIC) Type:PPO Address: [address] [place] [email or web address] AD[email or web address] [facility] [employer]MIN[employer] Care Teams Sponge Maker Relationship Specialty Start Date End Date Harini Merrill MD [address] [place] [address] [place] [address] PCP - General Internal Medicine 07/03/24 Additional Source Comments The information contained in this document represents components of the legal health record. It is not the complete legal health record.[facility]
--- OUTSIDE RECORDS SUMMARY | 2025-04-20 15:39 | XMS_ITS | Patient Health Record ---
Author Organization [facility] Address [address] [place] [address] Care Team Providers Care Rinkman Name Role Phone JaydenraulFaraz Primary Care Provider ALLERGIES No Known Allergies REASON FOR REFERRAL No Information MEDICATIONS Medication SIG (Take, Route, Frequency, Duration) Notes Start Date End Date Status Enxjmzsfkn-AIOR-Abbkrhes 50-325-40 MG 1 capsule as needed Orally every 4 hrs for 5 days 03/13/2023 Active Rizatriptan Benzoate 10 MG 1 tablet Oral ly Once a day for 10 days 03/13/2023 Active Vitamin D3 25 MCG (1000 UT) 1 capsule Orally Once a day Active Ciclopirox Olamine 0.77 % 1 application Externally Twice a day for 30 days 04/30/2023 Active SOCIAL HISTORY Tobacco Use: Social History Observation Description Date Details (start date - stop date) Never Smoker NA - NA Sex Assigned At : Social History Observation Description Sex Assigned At Unknown Tobacco Use/Smoking Question Answer Notes Are you a nonsmoker Alcohol Screen Question Answer Notes Did you have a drink contain ing alcohol in the past year? Yes How often did you have a dri nk containing alcohol in the past year? 2 to 4 times a month (2 points) How many drinks did you have on a typical day when you were drinking in the past year? 1 or 2 drinks (0 point) How often did you have 6 or more drinks on one occasion in the past year? Never (0 point) Points 2 Interpretation Negative PROBLEMS Problem Type ICD Code Onset Dates Problem Status W/U Status Risk SNOMED Code Notes Problem Vitamin D deficiency (E55.9) Active confirmed 86401112 Problem Slow transit constipation (K59.01) Active confirmed 06743420 Problem Sciatica, left side (M54.32) Active confirmed 96851923 Problem Intractable migraine with aura without status migrainosus (G43.119) Active confirmed 927163997 Problem Low back pain, unspecified (M54.50) Active confirmed 644409885 PLAN OF TREATMENT Pending Test Test Name Order Date MRI : Lumbosacral Spines 07/04/2022 MM Diagnostic Mammo SD Leonidas 11/07/2022 25OH VITAMIN D 11/27/2021 CBC (COMPLETE BLOOD COUNT) WITH DIFF COMPREHENSIVE METABOLIC PANEL 11/27/2021 LIPID PANEL 11/27/2021 THYROID PANEL (TSH, FT4) 11/27/2021 URINALYSIS, COMPLETE 11/27/2021 Insurance Providers Payer Name Payer Address Payer Phone Subscriber Number Group Number Insured Name Patient Relationship to Insured Coverage Start Date Coverage End Date [facility] [address] [place] [address] [id number] Rita Loera Self - patient is the insured MEDICAL (GENERAL) HISTORY Surgical History Surgery Date(Month/Year) Tubal ligation Partial hysterectomy for endometriosis Appendectomy 05/2022 Hospitalization History Reason Date(Month/Year) For above procedures
--- OUTSIDE RECORDS SUMMARY | 2025-04-20 15:39 | XMS_ITS | Clinical Summary ---
Author Organization [facility] Address [address] [place] [address] Care Team Providers Care Popcorn Attendant Name Role Phone Vin Cruz MD Primary Care Provider [phone] Allergies No known active allergies Medications meclizine (ANTIVERT) 12.5 mg tablet Take 1 tablet (12.5 mg total) by mouth 3 (three) times a day as needed. 30 tablet 08/09/2017 Active Active Problems No known active problems Social History Tobacco Use Types Packs/Day Years Used Date Smoking Tobacco: Never Smokeless Tobacco: Never Alcohol Use Standard Drinks/Week Comments No 0 (1 standard drink = 0.6 oz pur e alcohol) Comments Unknown Sex and Gender Information Value Date Recorded Sex Assigned at Not on file Legal Sex Female 8:24 AM EDT Gender Identity Not on file Sexual Orientation Not on file Last Filed Vital Signs Vital Sign Reading Time Taken Comments Blood Pressure 109/77 09/27/2017 4:06 AM EST Pulse 86 09/27/2017 4:06 AM EST Temperature 36.2 C (97.1 F) 09/27/2017 4:06 AM EST Respiratory Rate 18 09/27/2017 4:06 AM EST Oxygen Saturation 99% 09/27/2017 4:06 AM EST Inhaled Oxygen Concentration - - Weight 72.6 kg (160 lb) 08/09/2017 6:33 PM EST Height 160 cm (5' 3 ) 09/27/2017 4:06 AM EST Body Mass Index 28.34 08/09/2017 6:33 PM EST Plan of Treatment Not on file Insurance Care Teams Popcorn Attendant Relationship Specialty Start Date End Date Vin Cruz MD PCP - General Family Medicine 06/23/16
== END 2025-04-20 14:24 | disposition home or self-care (01) ==
LOC: HO.MAMMO 14:23
PROVIDERS: Visit Provider Internal Medicine
DX: N64.4 Mastodynia (principal); N60.01 Solitary cyst of right breast; N60.02 Solitary cyst of left breast
CPT/HCPCS: 76642; 77062; 77066

== ENCOUNTER → 2025-04-20 14:30 | Outpatient (BNV) | payer OTHER, MEDICAID, SELFPAY | PROVIDERS: Visit Provider Radiology Body Imaging | DX: N60.12 Diffuse cystic mastopathy of left breast (principal); N63.11 Unspecified lump in the right breast, upper outer quadrant | CPT/HCPCS: 76642; 77062; 77066 ==

== ENCOUNTER 2025-06-28 07:21 | Outpatient (REF) | payer OTHER, MEDICAID, SELFPAY ==
--- OUTSIDE RECORDS SUMMARY | 2024-06-08 11:20 | XMS_ITS ---
Author Organization [facility] [employer] [facility], [facility] Address [address] [place] [id number] Care Team Providers Care Maternal Child Nurse Name Role Phone Johnnie Ball Primary Care Provider REASON FOR VISIT Initial Visit est care Encounters Encounter Location Date Provider Diagnosis [address] [address] 06/08/2024 Johnnie Ball Assessments Encounter Date Diagnosis (ICD Code) Assessment Notes Treatment Notes Treatment Clinical Notes Section Notes 06/08/2024 Other Body Mass Index : Care Instructions material was printed Plan Of Treatment Treatment Notes Assessment Notes Other Body Mass Index: Car e Instructions material was printed Progress Notes * Rita FRANCISCODOB:[birth year] (40 yo F)Acc No.[id number]:06/08/2024 Progress Notes Patient: Rita DUKES Provider: Jesus Ball DO :1985 A ge:39 Y S ex:Female Date:06/08/2024 External Visit ID:[id number] Address:[address] [place], [place] [id number] Subjective: * Chief Complaints: * 1 . Initial Visit est care. * Medical History: Objective: * Vitals: * Physical Examination: Assessment: Plan: * Treatment: Care Plan: * Problems: * Billing Information: * Visit Code: * Procedure Codes: Care Plan Details* * Electronic signature of Kortney Ball DO on 06/28/2025 at 07:25 AM EDT Sign off status: Pending * Provider: Jesus Ball DO Date: 06/08/2024 Generated for Eben keller/Tom/Ximenaitting on: 06/28/2025 07:25 AM EDT
--- OUTSIDE RECORDS SUMMARY | 2025-06-28 07:26 | XMS_ITS | Encounter Summary ---
Author Organization [employer] [facility]placed [facility] Address [address] [employer] [employer] [facility] [address] [place] [address] Phone Care Team Providers Care Solution Professional Name Role Phone Harini Merrill MD Primary Care Provider Encounter Details Date Type Department Care Team (Late st Contact Info) Description 06/24/2025 Documentation [facility] [address] [place], [place] [address] [place] [address] Alex Granger MD [address] [place] [address] Infertility [place] [address] [email or web address] Social History Tobacco Use Types Packs/Day Years Used Date Smoking Tobacco: Never Smokeless Tobacco: Never Alcohol Use Standard Drinks/Week Comments Not Currently [...] Orientation Straight 03/12/2025 5: 33 PM EDT documented as of this encounter Progress Notes * Kaity Austin - 06/24/2025 9:52 AM EDT Patient is active under [facility] Blue Benefit Administ[employer] PPO effective date: 03/30/24 $20.00 OV copay Pt has $1,500.0 deductible/ $1,500.00 Remaining (per mary yr) OOP: $4,500.00 max/ $4,432.25 Remaining (per mary yr) OV referral not required Per PORTIA/ ID# [id number] documented in this encounter Plan of Treatment Upcoming Encounters Date Type Department Care Team (Late st Contact Info) Description 06/28/2025 11:30 AM EDT Telemedicine [facility] [address] [place], [place] [address] [place] [address] Alex Granger MD [address] [place] [address] Infertility [place] [address] [email or web address] documented as of this encounter Visit Diagnoses Not on filedocumented in this encounter Additional Health Concerns Assessment Noted Time PHQ-2 Depression Total Score: 0 11/10/19 21 1:58 PM EST documented as of this encounter Care Teams Solution Professional Relationship Specialty Start Date End Date Harini Merrill MD [address] [place] [address] [place] [address] PCP - General Internal Medicine 07/03/24 documented as of this encounter Additional Source Comments The information contained in this document represents components of the legal health record. It is not the complete legal health record.[facility]
--- OUTSIDE RECORDS SUMMARY | 2025-06-28 07:26 | XMS_ITS | Patient Health Record ---
Author Organization [facility] [employer] [facility] [employer] [facility] Address [address] [place] [address] Care Team Providers Care Strip Picker Name Role Phone Johnnie Ball Primary Care Provider Reason For Referral No Information Plan Of Treatment No Information Insurance Providers Payer Name Payer Address Payer Phone Subscriber Number Group Number Insured Name Patient Relationship to Insured Coverage Start Date Coverage End Date [facility] - Medical / MH [address] [place] [address] [id number] Rita Francisco Self - patient is the insured
--- OUTSIDE RECORDS SUMMARY | 2025-06-28 07:26 | XMS_ITS | Clinical Summary ---
Author Organization [facility] Address [address] [place] [address] Care Team Providers Care Industrial Relations Manager Name Role Phone Vin Cruz MD Primary Care Provider [phone] Allergies No known active allergies Medications meclizine [...] Treatment Not on file Insurance Care Teams Industrial Relations Manager Relationship Specialty Start Date End Date Vin Cruz MD PCP - General Family Medicine 06/23/16
--- OUTSIDE RECORDS SUMMARY | 2025-06-28 07:26 | XMS_ITS | Patient Health Record ---
Author Organization [facility] Address [address] [place] [address] Care Team Providers Care Rn Vascular Name Role Phone JaydenraulFaraz Primary Care Provider ALLERGIES No Known Allergies REASON FOR REFERRAL No Information MEDICATIONS Medication SIG (Take, Route, Frequency, Duration) Notes Start Date End Date Status Mjpoiobawb-OTRF-Cblcfsfj 50-325-40 MG 1 capsule as needed Orally [...] Problem Vitamin D deficiency (E55.9) Active confirmed 41930106 Problem Slow transit constipation (K59.01) Active confirmed 86290071 Problem Sciatica, left side (M54.32) Active confirmed 47166548 Problem Intractable migraine with aura without status migrainosus (G43.119) Active confirmed 909711025 Problem Low back pain, unspecified (M54.50) Active confirmed 078435826 PLAN OF TREATMENT Pending Test Test Name [...] Insured Coverage Start Date Coverage End Date [facility] [address] [place] [address] [id number] Rita Loera Self - patient is the insured MEDICAL (GENERAL) HISTORY Surgical History Surgery Date(Month/Year) Tubal ligation Partial hysterectomy for endometriosis Appendectomy 05/2022 Hospitalization History Reason Date(Month/Year) For above procedures
--- OUTSIDE RECORDS SUMMARY | 2025-06-28 07:26 | XMS_ITS | Clinical Summary ---
Author Organization [facility] [employer] Address [address] [facility] [place] [address] Care Team Providers Care Elevator Service Technician Name Role Phone Pcp, No Primary Care Provider [phone] Social History Tobacco Use Types Packs/Day Years Used Date Smoking Tobacco: Never Assessed Comments Unknown Sex and Gender Information Value Date Recorded Sex Assigned at Not on file Legal Sex Female 11:16 AM EST Gender Identity Not on file Sexual Orientation Not on file Plan of Treatment Health Maintenance Due Date Last Done Comments Depression: Screening Annual ly using PHQ-2/9 in Adults 18 yrs or above (or HM Modifier)([facility]) 2005 Hepatitis C Virus Infection in Adolescents and Adults: Screening (or Modifier) ([facility]) 2005 SDOH Screening Reminder: Annually for all adults ([facility]) 2005 Tobacco Smoking Cessation: i n Adults excluding Women: Behavioral and Pharmacotherapy Interventions ([facility]) 2005 Cervical Cancer Screenin-65 yrs of age (or Modifier) 2008 Cervical Cancer Screening: P ap every 3 yrs pts age 21-65 2008 Cervical Cancer: Pap Screeni ng with Modifier timing ([facility]) 2008 Cervical Cancer: hrHPV alone or with cotesting Pap for Pts 30-65yrs screening every 5yrs ([facility]) 2008 Flu Vaccination: Yearly for ages 18mos through 64 years (or Modifier)([facility]) 04/30/2025 09/14/2020 COVID-19 Vaccine Screening: Initial Series and Booster Status ([facility]) (2023- season) 2025 02/26/2021, 02/05/2021 DTaP/Tdap/Td Vaccines ([facility]) (2 - Td or Tdap) 09/14/2030 09/14/2020 Zoster/Shingles Vaccine Seri es Screening: Adults aged 18+ yrs (or HM Modifiers)([facility]) (1 of 2) 2037 Pneumococcal Vaccination Screening: Pts 0-19 & 19-49 yrs of age ([facility]) Aged Out No longer eligible based on patient's age to complete this topic Medical Devices Not on file Care Teams Elevator Service Technician Relationship Specialty Start Date End Date Pcp, No PCP - General Family Medicine 10/28/21
--- OUTSIDE RECORDS SUMMARY | 2025-06-28 07:26 | XMS_ITS | Clinical Summary ---
Author Organization [facility] Address [address] [address] Phone Care Team Providers Care Athletic Shoe Designer Name Role Phone Harini Merrill MD Primary [...] malignant neoplasm of cervix 09/14 Need for iglpobaptg-hggktzn-odzssscyw (Tdap) vac cine 09/14/2020 PMS (premenstrual syndrome) 09/14/2020 Irregular bleeding 09/14/2020 Dyspareunia in female 09/14/2020 Dysuria 09/14/2020 Left wrist pain 09/14/2020 Lumbar pain 09/14/2020 Fatty liver Encounters Date Type Department Care Team Description 06/24/2025 Documentation [facility] Reproductive Surgery [address] [place] [address] Alex Granger MD from Last 3 Months [...] Info) Description 06/28/2025 11:30 AM EDT Telemedicine [facility] [address] [place], [place] [address] [place] [address] Alex Granger MD [address] [place] [address] Infertility [place] [address] [email or web address] Health Maintenance Due Date Last Done Comments DEPRESSION SCREENING 11/10/2021 11/10/2020 SCREENING FOR DIABETES 09/14/2023 09/14/2020 INFLUENZA VACCINE (#1) 2025 09/14/2020 COVID-19 VACCINE (3 - 2024-2 6 season) 2025 02/26/2021, 02/05/2021 Adult Td,Tdap Booster 09/14/2030 09/14/2020 [...] topic Medical Devices Not on file Insurance [employer] Member Subscriber Plan / Payer (Ef fective 2024-Present) Name:Nolan Lareduardo Rita Relation to Subscriber:Self Name:Nolan LarRita mcnally Payer ID:[id number] (NA) Type:PPO Address: [place] [phone] [employer] Member Subscriber Plan / Payer ( fective 2024-) Name:Nolan Lareduardo Rita Relation to Subscriber:Self Name:Nolan Mark Rita Payer ID:[id number] (NA) Type:PPO Address: [address] [employer] Member Subscriber Plan / Payer ( fective 2024-Present) Name:Simba Flores Rita Relation to Subscriber:Self Name:Rita Gan Payer ID:[id number] (NAIC) Type:PPO Address: [place] [phone] [employer] Member Subscriber Plan / Payer ( fective 2024-Present) Name:Rita Gan Relation to Subscriber:Self Name:Rita Gan Payer ID:[id number] ([facility]) Type:PPO Address: [place] [phone] [employer] Member Subscriber Plan / Payer ( fective 2024-) Name:Rita aGn Relation to Subscriber:Self Name:Rita Gan Payer ID:[id number] ([facility]) Type:PPO Address: [place] [phone] [employer] Care Teams Athletic Shoe Designer Relationship Specialty Start Date End Date Harini Merrill MD [address] [place] [address] [place] [address] PCP - General Internal Medicine 07/03/24 Additional Source Comments The information contained in this document represents components of the legal health record. It is not the complete legal health record.[facility]
[2025-06-28 08:47] LABS: Alanine Aminotransferase 24 U/L (0-31); Albumin Level 4.3 g/dL (3.5-5.0); Alkaline Phosphatase 68 U/L (39-117); Anion Gap 11 (12-20); Aspartate Amino Transferase 18 U/L (5-31); Blood Urea Nitrogen 17 mg/dL (9-16); Calcium 8.8 mg/dL (8.4-10.2); Carbon Dioxide 23 mmol/L (22-29); Chloride 112 mmol/L (96-108); Cholesterol 206 mg/dL (<200); Estimated Glomerular Filt Rate > 60; HDL Cholesterol 44 mg/dL (>40); Potassium 4.2 mmol/L (3.3-5.1); Sodium 142 mmol/L (135-145); Total Protein 6.7 g/dL (6.5-8.0); Triglycerides 158 mg/dL (<150)
[2025-06-28 08:56] LABS: Thyroid Stimulating Hormone 2.80 uIU/mL (0.32-4.0)
== END 2025-06-28 07:22 | disposition home or self-care (01) ==
LOC: HO.LAB 07:21
PROVIDERS: PCP Internal Medicine; Visit Provider Internal Medicine
DX: N64.4 Mastodynia (principal); K76.0 Fatty (change of) liver, not elsewhere classified; R53.83 Other fatigue; N63.0 Unspecified lump in unspecified breast; N80.9 Endometriosis, unspecified
CPT/HCPCS: 36415; 80053; 80061; 84443